=== PATIENT | female | born 1995 | race American Indian/Alaskan Native ===

== ENCOUNTER 2016-07-13 10:10 | Emergency (ER) | payer SELFPAY ==
--- NOTE | 2016-07-13 12:49 | Emergency Department Report ---
ED General Adult HPI - General Chief complaint: Pain General Stated complaint: LUPUS Time Seen by Provider: 07/13/16 11:19 Source: patient Mode of arrival: Ambulatory Limitations: No Limitations - History of Present Illness Initial comments: Patient here reports that she believes that she is having a lupus flare up. Patient is complaining of body pain all over with increased pain in her back of her neck. She stated that she has nausea but denies any vomiting. Denies any fever or chills. She has not vomited today but she says she vomited last night. Blood pressure is 157/117 and she is on labetalol 3 times a day. She says she did not take the dose today because she wasn't feeling well. Describes the pain as achy and 9 out of 10. Patient is also on CellCept and prednisone daily. Denies any abdominal pain. MD Complaint: Lupus flareup Onset/Timin -: days(s) Location: neck (generalized body pain), back, upper extremity, lower extremity Radiation: non-radiation Severity scale (0 -10): 9 Quality: aching Consistency: constant Improves with: rest Worsens with: movement Associated Symptoms: denies: confusion, chest pain, cough, diaphoresis, fever/ chills, headaches, loss of appetite, malaise, nausea/vomiting, rash, seizure, shortness of breath, syncope, weakness Treatments Prior to Arrival: none - Related Data Home Medications Medication Instructions Recorded Confirmed Last Taken Prednisone [predniSONE] 10 mg PO DAILY 11/18/13 10/07/15 10/07/15 1 Vit-Fe Fumar-FA [ 1 tab PO QDAY 09/02/15 10/07/15 09/01/15 09: 00 Vitamin] Previous Rx's Medication Instructions Recorded Last Taken Type Labetalol [Normodyne TAB] 400 mg PO TID #120 tablet 10/09/15 Unknown Rx Ferrous Sulfate [Feosol 325 MG tab] 325 mg PO BID #60 tablet 10/12/15 Unknown Rx HYDROcodone/APAP 5-325 [[place] 1 each PO Q6HR PRN #30 tablet 10/12/15 Unknown Rx 5/325] Ibuprofen [Motrin] 800 mg PO Q8HR PRN #30 tablet 10/12/15 Unknown Rx Vit W-Ca,Fe,FA(<1 mg) 1 each PO DAILY #30 tablet 10/12/15 Unknown Rx [ Vitamins] predniSONE [Deltasone] 60 mg PO QDAY #120 tab 10/15/15 Unknown Rx Sulfamethoxazole/Trimethoprim 1 each PO BID #6 tablet 07/13/16 Unknown Rx [Bactrim DS TAB] Allergies Allergy/AdvReac Type Severity Reaction Status Date / Time No Known Allergies Allergy Verified 06/20/15 18:08 ED Review of Systems ROS: Stated complaint: LUPUS Other details as noted in HPI Comment: All other systems reviewed and negative Constitutional: denies: chills, fever ENT: denies: ear pain, throat pain, congestion Respiratory: no symptoms reported Cardiovascular: denies: chest pain, palpitations, edema, syncope Gastrointestinal: denies: abdominal pain, nausea, vomiting, diarrhea, constipation Genitourinary: denies: urgency, dysuria, frequency, hematuria, discharge Musculoskeletal: back pain, arthralgia, myalgia Skin: denies: rash Neurological: weakness. denies: headache, numbness, paresthesias, confusion, abnormal gait, vertigo ED Past Medical Hx - Past Medical History Previous Medical History?: Yes Hx Hypertension: Yes Hx Congestive Heart Failure: No Hx Diabetes: No Hx Deep Vein Thrombosis: No Hx Renal Disease: (Lupus Nephritis) Hx Sickle Cell Disease: No (has sickle cell trait) Hx Seizures: Yes (February 2014) Hx Asthma: No Hx COPD: No Hx HIV: No Additional medical history: Heart murmur ,lupus - Surgical History Past Surgical History?: No - Family History Family history: hypertension - Social History Smoking Status: Never Smoker Substance Use Type: None - Medications Home Medications: Home Medications Medication Instructions Recorded Confirmed Last Taken Type Prednisone [predniSONE] 10 mg PO DAILY 11/18/13 10/07/15 10/07/15 History 1 Vit-Fe Fumar-FA [ 1 tab PO QDAY 09/02/15 10/07/15 09/01/15 09: 00 History Vitamin] Labetalol [Normodyne TAB] 400 mg PO TID #120 tablet 10/09/15 Unknown Rx Ferrous Sulfate [Feosol 325 MG tab] 325 mg PO BID #60 tablet 10/12/15 Unknown Rx HYDROcodone/APAP 5-325 [[place] 1 each PO Q6HR PRN #30 tablet 10/12/15 Unknown Rx 5/325] Ibuprofen [Motrin] 800 mg PO Q8HR PRN #30 tablet 10/12/15 Unknown Rx Vit W-Ca,Fe,FA(<1 mg) 1 each PO DAILY #30 tablet 10/12/15 Unknown Rx [ Vitamins] predniSONE [Deltasone] 60 mg PO QDAY #120 tab 10/15/15 Unknown Rx Sulfamethoxazole/Trimethoprim 1 each PO BID #6 tablet 07/13/16 Unknown Rx [Bactrim DS TAB] ED Physical Exam - General Limitations: No Limitations General appearance: alert, in no apparent distress - Head Head exam: Present: atraumatic, normocephalic, normal inspection - Eye Eye exam: Present: normal appearance, PERRL, EOMI. Absent: periorbital swelling , periorbital tenderness Pupils: Present: normal accommodation - ENT ENT exam: Present: normal exam, normal orophraynx, mucous membranes moist, TM's normal bilaterally, normal external ear exam - Neck Neck exam: Present: normal inspection, full ROM. Absent: tenderness, meningismus, lymphadenopathy - Expanded Neck Exam Expanded Neck exam: Absent: tenderness, midline deformity, anterior neck swelling, tracheal deviation - Respiratory Respiratory exam: Present: normal lung sounds bilaterally. Absent: respiratory distress, chest wall tenderness - Cardiovascular Cardiovascular Exam: Present: regular rate, normal rhythm, normal heart sounds - GI/Abdominal GI/Abdominal exam: Present: soft, normal bowel sounds. Absent: distended, tenderness, rigid - Extremities Exam Extremities exam: Present: normal inspection, full ROM, normal capillary refill. Absent: tenderness, pedal edema, joint swelling, calf tenderness - Back Exam Back exam: Present: normal inspection, full ROM. Absent: tenderness, CVA tenderness (R), CVA tenderness (L), muscle spasm, paraspinal tenderness, vertebral tenderness, rash noted - Expanded Back Exam Expanded Back exam: Absent: saddle anesthesia Back exam: Negative Straight Leg Raising: Left, Right - Neurological Exam Neurological exam: Present: alert, oriented X3, normal gait, reflexes normal. Absent: motor sensory deficit - Expanded Neurological Exam Expanded Neurological exam: Absent: innattentive, memory loss-remote event, memory loss- recent event, ataxia, receptive aphasia, expressive aphasia, total aphasia, tremor, protecting the airway Patient oriented to: Present: person, place Speech: Present: fluid speech Cranial nerves: EOM's Intact: Normal, Gag Reflex: Normal, Facial Sensation: Normal Cerebellar function: Romberg: Normal Upper motor neuron: Pronator Drift: Normal, Sensory Extinction: Normal Sensory exam: Upper Extremity Light Touch: Normal, Upper Extremity Temperature: Normal, UE 2 Point Discrimination: Normal, Lower Extremity Light Touch: Normal, Lower Extremity Temperature: Normal, LE 2 Point Discrimination: Normal Motor strength exam: RUE: 5, LUE: 5, RLE: 5, LLE: 5 DTR: bicep (R): 2+, bicep (L): 2+, tricep (R): 2+, tricep (L): 2+, knee (R): 2+ , knee (L): 2+, ankle (R): 2+, ankle (L): 2+ Best Eye Response ([place]): (4) open spontaneously Best Motor Response ([place]): (6) obeys commands Best Verbal Response ([place]): (5) oriented [place] Total: 15 - Psychiatric Psychiatric exam: Present: normal affect, normal mood - Skin Skin exam: Present: warm, dry, intact, normal color. Absent: rash ED Course Vital Signs 07/13/16 07/13/16 07/13/16 10:28 13:53 14:50 Temperature 98.3 F Pulse Rate 87 Respiratory 18 20 18 Rate Blood Pressure 157/117 O2 Sat by Pulse 100 99 Oximetry Vital Signs 07/13/16 07/13/16 07/13/16 10:28 13:53 14:50 Temperature 98.3 F Pulse Rate 87 Respiratory 18 20 18 Rate Blood Pressure 157/117 Blood Pressure [Right] O2 Sat by Pulse 100 99 Oximetry 07/13/16 16:50 Temperature Pulse Rate 82 Respiratory 16 Rate Blood Pressure Blood Pressure 142/96 [Right] O2 Sat by Pulse 98 Oximetry - Reevaluation(s) Reevaluation #1: 07/13/16 16:32 Patient stable she received 1 L of IV fluid normal saline, Solu-Medrol 125 mg IV , morphine 4 mg IV and Zofran 4 mg IV in emergency room. She stated that she is feeling better and her pain is down to 2 out of 10. 07/13/16 16:33 ED Medical Decision Making - Lab Data Result diagrams: 07/13/16 13:05 07/13/16 13:05 Lab Results 07/13/16 07/13/1617 Range/Units 13:05 13:05 13:18 WBC 5.8 (4.5-11.0) K/mm3 RBC 4.01 (3.65-5.03) M/mm3 Hgb 10.5 (10.1-14.3) gm/dl Hct 31.1 (30.3-42.9) % MCV 77 L (79-97) fl MCH 26 L (28-32) pg MCHC 34 (30-34) % RDW 13.6 (13.2-15.2) % Plt Count 227 (140-440) K/mm3 Lymph % (Auto) 18.9 (13.4-35.0) % [place] % (Auto) 8.9 H (0.0-7.3) % Eos % (Auto) 0.3 (0.0-4.3) % Baso % (Auto) 0.9 (0.0-1.8) % Lymph # 1.1 L (1.2-5.4) K/mm3 [place] # 0.5 (0.0-0.8) K/mm3 Eos # 0.0 (0.0-0.4) K/mm3 Baso # 0.1 (0.0-0.1) K/mm3 Seg Neutrophils % 71.0 H (40.0-70.0) % Seg Neutrophils # 4.1 (1.8-7.7) K/mm3 Sodium 143 (137-145) mmol/L Potassium 4.2 (3.6-5.0) mmol/L Chloride 110.9 H (98-107) mmol/L Carbon Dioxide 23 (22-30) mmol/L Anion Gap 13 mmol/L BUN 19 H (7-17) mg/dL Creatinine 1.6 H (0.7-1.2) mg/dL Estimated GFR 49 ml/min BUN/Creatinine Ratio 11.87 % Glucose 86 (65-100) mg/dL Calcium 7.2 L (8.4-10.2) mg/dL Total Bilirubin 0.2 (0.1-1.2) mg/dL Direct Bilirubin < 0.2 (0-0.2) mg/dL AST 15 (5-40) units/L ALT 7 (7-56) units/L Alkaline Phosphatase 64 (35-129) units/L Total Protein 4.3 L (6.3-8.2) g/dL Albumin 1.4 L (3.9-5) g/dL Albumin/Globulin Ratio 0.5 % Urine Color Yellow (Yellow) Urine Turbidity Slightly-cloudy (Clear) Urine pH 6.0 (5.0-7.0) Ur Specific [facility] 1.019 (1.003-1.030) Urine Protein >500 (Negative) mg/dL Urine Glucose (UA) Neg (Negative) mg/dL Urine Ketones Neg (Negative) mg/dL Urine Blood Mod (Negative) Urine Nitrite Neg (Negative) Urine Bilirubin Neg (Negative) Urine Urobilinogen < 2.0 (<2.0) mg/dL Ur Leukocyte Esterase Tr (Negative) Urine WBC (Auto) 20.0 H (0.0-6.0) /HPF Urine RBC (Auto) 15.0 (0.0-6.0) /HPF U Epithel Cells (Auto) 5.0 (0-13.0) /HPF Urine Bacteria (Auto) 1+ (Negative) /HPF Urine Mucus Few /HPF Urine HCG, Qual Negative (Negative) Urine culture pending - Medical Decision Making ED course: She is here reports lupus flareup. Lab work was found to be normal except she had mild increase in BUN and creatinine patient has been disabled since 2013. Her labwork history. She sees a farm crops teacher and she has passed nephritis. She also has moderate amount of blood in her urine, trace leuk trace and 1+ bacteria. Culture sent off and will treat for UTI. I went over lab work and urinalysis are patient. She says she felt better after hydration and Zofran, steroids iv. she was also given morphine 4 mg IV. Patient able to tolerate oral liquids prior to discharge. Patient discharged home to follow up with her primary care farm crops teacher and 3 days. Patient discharged home with prescription for Bactrim DS. Critical care attestation.: If time is entered above; I have spent that time in minutes in the direct care of this critically ill patient, excluding procedure time. ED Disposition Clinical Impression: Acute cystitis with hematuria, Proteinuria, Musculoskeletal pain, Renal insufficiency Disposition: DISCHARGED TO HOME OR SELFCARE Is pt being admited?: No Does the pt Need Aspirin: No Condition: Stable Instructions: Musculoskeletal Pain (ED), Impaired Kidney Function (ED), Urinary Tract Infection in Women (ED) Additional Instructions: Follow-up with primary care physician and your farm crops teacher on Saturday. Take antibiotic as prescribed. Monitor blood pressure and keep a log and take to her farm crops teacher visit with you. Prescriptions: Sulfamethoxazole/Trimethoprim [Bactrim DS TAB] 1 each PO BID #6 tablet Referrals: PRIMARY CARE, [Primary Care Provider] - 07/16/16 Your, Commercial Credit Specialist [Other] - 07/16/16 Forms: Accompanied Note, Work/School Release Form(ED)
[2016-07-13] MEDS ORDERED: NACL 0.9% 1000 ML 1,000 ML IV ONE (12:50)
[2016-07-13] MEDS ORDERED: ZOFRAN IV ONE (12:50)
[2016-07-13] MEDS ORDERED: MORPHINE IV ONE (12:50)
[2016-07-13 13:22] LABS: Basophils % (Auto) 0.9 % (0.0-1.8); Eosinophils % (Auto) 0.3 % (0.0-4.3); Hematocrit 31.1 % (30.3-42.9); Hemoglobin 10.5 gm/dl (10.1-14.3); Mean Corpuscular HGB Conc 34 % (30-34); Mean Corpuscular Hemoglobin 26 pg (28-32); Mean Corpuscular Volume 77 fl (79-97); Platelet Count 227 K/mm3 (140-440); Red Blood Count 4.01 M/mm3 (3.65-5.03); Red Cell Distribution Width 13.6 % (13.2-15.2); White Blood Count 5.8 K/mm3 (4.5-11.0)
[2016-07-13 13:38] LABS: Alanine Aminotransferase 7 units/L (7-56); Albumin 1.4 g/dL (3.9-5); Albumin/Globulin Ratio 0.5 %; Alkaline Phosphatase 64 units/L (35-129); Anion Gap 13 mmol/L; BUN/Creatinine Ratio 11.87; Bilirubin,Total 0.2 mg/dL (0.1-1.2); Blood Urea Nitrogen 19 mg/dL (7-17); Calcium 7.2 mg/dL (8.4-10.2); Carbon Dioxide 23 mmol/L (22-30); Chloride 110.9 mmol/L (98-107); Glucose 86 mg/dL (65-100); Potassium 4.2 mmol/L (3.6-5.0); Sodium 143 mmol/L (137-145); Total Protein 4.3 g/dL (6.3-8.2)
[2016-07-13 13:40] LABS: Bilirubin,Direct < 0.2 mg/dL (0-0.2)
[2016-07-13 13:44] LABS: Bacteria,Urine 1+ /HPF (Negative); Bilirubin,Urine NEG (Negative); Blood,Urine MOD (Negative); Ketones,Urine NEG (Negative); Leukocyte Esterase,Urine TR (Negative); Mucus,Urine FEW /HPF; Nitrite,Urine NEG (Negative); Urobilinogen,Urine < 2.0 mg/dL (<2.0)
[2016-07-13 13:46] LABS: Protein,Urine >500 mg/dL (Negative)
[2016-07-13 16:51] VITALS: BP 142/96
== END 2016-07-13 17:10 | disposition home or self-care (01) ==
LOC: ED 10:10
DX: N30.01 Acute cystitis with hematuria (principal); M79.1 Myalgia; N28.9 Disorder of kidney and ureter, unspecified; I10 Essential (primary) hypertension
CPT/HCPCS: 36415; 80048; 80074; 81001; 81025; 85025; 87086; 96361; 96374; 96375; 99283; J2270; J2405; J2930; J7030

== ENCOUNTER 2016-07-17 20:48 | Emergency (ER) | payer MEDICAID ==
[2016-07-17 22:11] LABS: Hematocrit 32.3 % (30.3-42.9); Hemoglobin 10.8 gm/dl (10.1-14.3); Mean Corpuscular HGB Conc 34 % (30-34); Mean Corpuscular Volume 76 fl (79-97); Platelet Count 245 K/mm3 (140-440); Red Blood Count 4.23 M/mm3 (3.65-5.03); Red Cell Distribution Width 13.9 % (13.2-15.2); White Blood Count 9.4 K/mm3 (4.5-11.0)
[2016-07-17 22:17] LABS: Mean Corpuscular Hemoglobin 26 pg (28-32)
[2016-07-17 22:21] LABS: INR 0.94 (0.87-1.13)
[2016-07-17 22:22] LABS: Partial Thromboplastin Time 28.3 Sec. (24.2-36.6)
[2016-07-17 22:35] LABS: Alanine Aminotransferase 9 units/L (7-56); Albumin 1.8 g/dL (3.9-5); Albumin/Globulin Ratio 0.7 %; Alkaline Phosphatase 63 units/L (35-129); Anion Gap 13 mmol/L; Bilirubin,Total 0.2 mg/dL (0.1-1.2); Blood Urea Nitrogen 25 mg/dL (7-17); Calcium 7.4 mg/dL (8.4-10.2); Carbon Dioxide 22 mmol/L (22-30); Chloride 108.7 mmol/L (98-107); Glucose 106 mg/dL (65-100); Lipase 37 units/L (13-60); Potassium 4.8 mmol/L (3.6-5.0); Sodium 139 mmol/L (137-145); Total Protein 4.4 g/dL (6.3-8.2)
[2016-07-17 22:55] LABS: Basophils % (Manual) 0 % (0.0-1.8); Blastocytes % (Manual) 0 %; Eosinophils % (Manual) 0 % (0.0-4.3)
[2016-07-17 22:56] LABS: Anisocytosis 1+; Diff Status Complete; Hypochromasia 1+; Large Platelets 1+; Platelet Estimate Consistent w Auto; Poikilocytosis 1+
[2016-07-18 02:19] LABS: Bacteria,Urine 2+ /HPF (Negative); Bilirubin,Urine NEG (Negative); Blood,Urine MOD (Negative); Ketones,Urine NEG (Negative); Leukocyte Esterase,Urine TR (Negative); Mucus,Urine FEW /HPF; Nitrite,Urine NEG (Negative); Protein,Urine >500 mg/dL (Negative); Urobilinogen,Urine < 2.0 mg/dL (<2.0)
[2016-07-18] MEDS ORDERED: DILAUDID IV ONE (03:39)
[2016-07-18] MEDS ORDERED: ZOFRAN IV ONE (03:39)
[2016-07-18] MEDS ORDERED: NACL 0.9% 1000 ML 1,000 ML IV ONE (03:39)
[2016-07-18] MEDS ORDERED: DECADRON IV ONE (03:39)
--- NOTE | 2016-07-18 03:41 | Emergency Department Report ---
ED Chest Pain HPI - General Chief Complaint: Chest Pain Stated Complaint: LUPUS PAIN/CHEST PAIN Time Seen by Provider: 07/18/16 03:16 Source: patient Mode of arrival: Ambulatory Limitations: No Limitations - History of Present Illness Initial Comments: This is a 20-year-old female with known history of lupus disease. She states that she's been having flare for the last several days. She was seen actually 4 days ago in our emergency department was given IV fluids and steroids and pain medication. She reports subjectively that she felt improved after that. She states at home she felt well for another day and then started declining again. She states today she's had some increase discomforts including chest pains she's had headache as well. She denies dysuria. She has felt feverish as well. Patient denies cough states that she is modestly compliant with her prednisone taking it only every other day. She is on a dose of 20 mg prednisone chronically. She follows with Dr. Heredia with nephrology. In regards to head pain it is occipital in nature. She does not have photophobia. She denies chronic history of migraines or headaches in general. She reports this is not typical for her to have headache with her lupus flare. Severity scale (0 -10): 10 - Related Data Home Medications Medication Instructions Recorded Confirmed Last Taken Prednisone [predniSONE] 10 mg PO DAILY 11/18/13 10/07/15 10/07/15 1 Vit-Fe Fumar-FA [ 1 tab PO QDAY 09/02/15 10/07/15 09/01/15 09: 00 Vitamin] Previous Rx's Medication Instructions Recorded Last Taken Type Labetalol [Normodyne TAB] 400 mg PO TID #120 tablet 10/09/15 Unknown Rx Ferrous Sulfate [Feosol 325 MG tab] 325 mg PO BID #60 tablet 10/12/15 Unknown Rx HYDROcodone/APAP 5-325 [[place] 1 each PO Q6HR PRN #30 tablet 10/12/15 Unknown Rx 5/325] Ibuprofen [Motrin] 800 mg PO Q8HR PRN #30 tablet 10/12/15 Unknown Rx Vit W-Ca,Fe,FA(<1 mg) 1 each PO DAILY #30 tablet 10/12/15 Unknown Rx [ Vitamins] predniSONE [Deltasone] 60 mg PO QDAY #120 tab 07/02/16 Unknown Rx Sulfamethoxazole/Trimethoprim 1 each PO BID #6 tablet 07/13/16 Unknown Rx [Bactrim DS TAB] Amoxicillin 500 mg PO TID #21 capsule 07/18/16 Unknown Rx HYDROcodone/APAP 5-325 [[place] 1 each PO Q4HR PRN #30 tablet 07/18/16 Unknown Rx 5/325] Allergies Allergy/AdvReac Type Severity Reaction Status Date / Time No Known Allergies Allergy Verified 06/20/15 18:08 LOLA score - Lola Score Age > 65: (0) No Aspirin use within the Past 7 Days: (0) No 3 or more CAD Risk Factors: (0) No 2 or more Angina events in past 24 hrs: (0) No Known CAD with more than 50% Stenosis: (0) No Elevated Cardiac Markers: (0) No ST Deviation Greater than 0.5mm: (0) No LOLA Score: 0 ED Review of Systems ROS: Stated complaint: LUPUS PAIN/CHEST PAIN Other details as noted in HPI Comment: All other systems reviewed and negative Constitutional: chills, fever, weakness Eyes: denies: eye pain, eye discharge, vision change ENT: denies: ear pain, throat pain Respiratory: denies: cough, shortness of breath, wheezing Cardiovascular: chest pain. denies: palpitations Endocrine: no symptoms reported Gastrointestinal: denies: abdominal pain, nausea, diarrhea Genitourinary: denies: urgency, dysuria, discharge Musculoskeletal: denies: back pain, joint swelling, arthralgia Skin: denies: rash, lesions Neurological: headache. denies: weakness, paresthesias Psychiatric: denies: anxiety, depression Hematological/Lymphatic: denies: easy bleeding, easy bruising ED Past Medical Hx - Past Medical History Previous Medical History?: Yes Hx Hypertension: Yes Hx Congestive Heart Failure: No Hx Diabetes: No Hx Deep Vein Thrombosis: No Hx Renal Disease: (Lupus Nephritis) Hx Sickle Cell Disease: No (has sickle cell trait) Hx Seizures: Yes (February 2014) Hx Asthma: No Hx COPD: No Hx HIV: No Additional medical history: Heart murmur ,lupus - Surgical History Past Surgical History?: No - Social History Smoking Status: Never Smoker Substance Use Type: None - Medications Home Medications: Home Medications Medication Instructions Recorded Confirmed Last Taken Type Prednisone [predniSONE] 10 mg PO DAILY 11/18/13 10/07/15 10/07/15 History 1 Vit-Fe Fumar-FA [ 1 tab PO QDAY 09/02/15 10/07/15 09/01/15 09: 00 History Vitamin] Labetalol [Normodyne TAB] 400 mg PO TID #120 tablet 10/09/15 Unknown Rx Ferrous Sulfate [Feosol 325 MG tab] 325 mg PO BID #60 tablet 10/12/15 Unknown Rx HYDROcodone/APAP 5-325 [[place] 1 each PO Q6HR PRN #30 tablet 10/12/15 Unknown Rx 5/325] Ibuprofen [Motrin] 800 mg PO Q8HR PRN #30 tablet 10/12/15 Unknown Rx Vit W-Ca,Fe,FA(<1 mg) 1 each PO DAILY #30 tablet 10/12/15 Unknown Rx [ Vitamins] predniSONE [Deltasone] 60 mg PO QDAY #120 tab 10/15/15 Unknown Rx Sulfamethoxazole/Trimethoprim 1 each PO BID #6 tablet 07/13/16 Unknown Rx [Bactrim DS TAB] Amoxicillin 500 mg PO TID #21 capsule 07/18/16 Unknown Rx HYDROcodone/APAP 5-325 [[place] 1 each PO Q4HR PRN #30 tablet 07/18/16 Unknown Rx 5/325] ED Physical Exam - General Limitations: No Limitations General appearance: alert, in distress (due to LOPEZ and CP) - Head Head exam: Present: atraumatic, normocephalic - Eye Eye exam: Present: normal appearance, PERRL, EOMI. Absent: scleral icterus - ENT ENT exam: Present: normal exam, normal orophraynx, mucous membranes moist - Neck Neck exam: Present: normal inspection, full ROM. Absent: tenderness, meningismus, lymphadenopathy - Respiratory Respiratory exam: Present: normal lung sounds bilaterally. Absent: respiratory distress, wheezes, rales - Cardiovascular Cardiovascular Exam: Present: normal rhythm, tachycardia. Absent: systolic murmur, diastolic murmur, rubs, gallop - GI/Abdominal GI/Abdominal exam: Present: soft, normal bowel sounds. Absent: tenderness, guarding, rebound - Extremities Exam Extremities exam: Present: normal inspection. Absent: tenderness, pedal edema, calf tenderness - Back Exam Back exam: Present: normal inspection. Absent: tenderness, CVA tenderness (R), CVA tenderness (L) - Neurological Exam Neurological exam: Present: alert, oriented X3 - Psychiatric Psychiatric exam: Present: normal affect, normal mood - Skin Skin exam: Present: warm, dry, intact, normal color. Absent: rash ED Course Vital Signs 07/17/16 07/18/16 07/18/16 20:58 01:36 01:40 Temperature 100.5 F H Pulse Rate 119 H 90 Respiratory 20 21 Rate Blood Pressure 170/119 170/119 Blood Pressure 157/118 [Right] O2 Sat by Pulse 100 100 Oximetry 07/18/16 07/18/16 07/18/16 01:43 01:45 01:50 Temperature Pulse Rate 90 94 H Respiratory 18 21 16 Rate Blood Pressure 166/111 166/111 Blood Pressure [Right] O2 Sat by Pulse 100 99 99 Oximetry 07/18/16 07/18/16 07/18/16 01:56 02:00 02:06 Temperature Pulse Rate 84 90 92 H Respiratory 18 22 19 Rate Blood Pressure 166/111 168/113 168/113 Blood Pressure [Right] O2 Sat by Pulse 99 100 97 Oximetry 07/18/16 07/18/16 07/18/16 02:10 02:15 02:20 Temperature Pulse Rate 93 H 92 H 87 Respiratory 15 21 17 Rate Blood Pressure 168/113 150/101 150/101 Blood Pressure [Right] O2 Sat by Pulse 100 100 100 Oximetry 07/18/16 07/18/16 07/18/16 02:26 02:30 02:36 Temperature Pulse Rate 89 92 H 90 Respiratory 12 19 15 Rate Blood Pressure 170/119 152/101 152/101 Blood Pressure [Right] O2 Sat by Pulse 100 100 100 Oximetry 07/18/16 07/18/16 07/18/16 02:40 02:45 02:50 Temperature Pulse Rate 84 98 H 97 H Respiratory 16 17 20 Rate Blood Pressure 152/101 155/104 155/104 Blood Pressure [Right] O2 Sat by Pulse 100 100 100 Oximetry 07/18/16 07/18/16 07/18/16 02:56 03:00 03:07 Temperature Pulse Rate 114 H 93 H 63 Respiratory 23 20 Rate Blood Pressure 155/104 154/111 Blood Pressure [Right] O2 Sat by Pulse 99 97 Oximetry - Reevaluation(s) Reevaluation #1: 07/18/16 03:16 ECG at 2050 with sinus tachycardia at 115 bpm with normal MI and QRS. Normal axis is noted. Otherwise unremarkable ECG. Reevaluation #2: 07/18/16 04:21 Patient is uncomfortable appearing here. She does not appear toxic. I am suspicious of a multifactorial presentation. I don't doubt she has lupus flare. I suspect there is an infectious component as well. Etiology seems to be the urine. There is evidence of infection. There the urine was sent for culture. There is some question of my mind whether this could be due to her lupus as well given her known kidney involvement. I will air on the side of treating for now however. Patient given a dose of Rocephin here. I did give dose of steroids as well to additionally augmentation to her slowing down and improving this lupus flare. She is noted to have a bumped creatinine 2.1. This appears to be her galo from what I can see on our labs at this hospital. I hope that this is just related to her flare and will hold down. I have cautioned her that she will need close follow-up with her skin care instructor. She will likely need repeat lead test done in about 5-7 days. She is tolerating by mouth okay here. I did consider other etiologies for her headache including possibility of meningitis. I doubt this clinically. I did express concern of this possibility the patient fell. She does not present like the fluid do not suspect. Patient was given symptomatic treatment here with modest to good results. In regards to the chest pain, patient has a normal ECG before tachycardia. She has negative enzymes 2. From a cardiac standpoint have a low suspicion for a primary process. Continue consider pulmonary embolism as well. Lupus clearly has coagulation concern PE just seems like unlikely to me as the tachycardia is easily explained with the fever and the patient has 100% oxygenation. Chest pain does not seems pleuritic in nature. She has had similar complaints in the past with her lupus flares. I believe lupus flare is much more likely etiology. 07/18/16 04:34 ED Medical Decision Making - Lab Data Result diagrams: 07/17/16 21:40 07/17/16 21:40 Critical care attestation.: If time is entered above; I have spent that time in minutes in the direct care of this critically ill patient, excluding procedure time. ED Disposition Clinical Impression: Fever Qualifiers: Fever type: unspecified Qualified Code(s): R50.9 - Fever, unspecified Chest pain Qualifiers: Chest pain type: precordial chest pain Qualified Code(s): R07.2 - Precordial pain UTI (urinary tract infection) Qualifiers: Urinary tract infection type: acute cystitis Hematuria presence: with hematuria Qualified Code(s): N30.01 - Acute cystitis with hematuria Disposition: DISCHARGED TO HOME OR SELFCARE Is pt being admited?: No Does the pt Need Aspirin: No Condition: Stable Additional Instructions: Drink plenty of fluids. Follow-up with your skin care instructor for continued evaluation and care. Your creatinine today is 2.1. Prescriptions: Amoxicillin 500 mg PO TID #21 capsule HYDROcodone/APAP 5-325 [[place] 5/325] 1 each PO Q4HR PRN #30 tablet PRN Reason: Pain Referrals: PRICILLA BATISTA MD [Primary Care Provider] - 3-5 Days Time of Disposition: 04:33
[2016-07-18] MEDS ORDERED: TYLENOL PO ONE (03:42)
[2016-07-18] MEDS ORDERED: ROCEPHIN/NS 1 GM/50 ML 1 GM/50 ML BAG IV ONE (03:43)
[2016-07-18 04:59] VITALS: BP 138/90
== END 2016-07-18 05:04 | disposition home or self-care (01) ==
LOC: ED 20:48
DX: N30.01 Acute cystitis with hematuria (principal); R50.9 Fever, unspecified; R07.2 Precordial pain; I10 Essential (primary) hypertension; M32.14 Glomerular disease in systemic lupus erythematosus; D57.00 Hb-SS disease with crisis, unspecified
CPT/HCPCS: 36415; 80053; 81001; 83690; 84484; 84703; 85007; 85025; 85610; 85730; 87086; 93005; 93010; 96365; 96375; 99284; J0696; J1100; J1170; J2405; J7030

== ENCOUNTER 2016-08-20 09:25 | Outpatient (CLI) | payer MEDICAID ==
[2016-08-20 09:55] LABS: Hematocrit 23.5 % (30.3-42.9); Hemoglobin 8.1 gm/dl (10.1-14.3); Mean Corpuscular HGB Conc 34 % (30-34); Mean Corpuscular Hemoglobin 28 pg (28-32); Mean Corpuscular Volume 81 fl (79-97); Platelet Count 333 K/mm3 (140-440); Red Blood Count 2.92 M/mm3 (3.65-5.03); Red Cell Distribution Width 18.9 % (13.2-15.2); White Blood Count 5.7 K/mm3 (4.5-11.0)
[2016-08-20 10:10] LABS: BUN/Creatinine Ratio 11.03; Calcium 7.5 mg/dL (8.4-10.2); Phosphorous 4.9 mg/dL (2.5-4.5); Potassium 3.1 mmol/L (3.6-5.0)
== END 2016-08-20 09:26 | disposition home or self-care (01) ==
LOC: LAB 09:25
PROVIDERS: ATTEND Internal Medicine
DX: N17.9 Acute kidney failure, unspecified (principal); N18.5 Chronic kidney disease, stage 5; M32.14 Glomerular disease in systemic lupus erythematosus; M32.9 Systemic lupus erythematosus, unspecified; R60.1 Generalized edema; R31.9 Hematuria, unspecified
CPT/HCPCS: 36415; 80048; 82040; 84100; 85027

== ENCOUNTER 2016-08-27 11:21 | Outpatient (CLI) | payer MEDICAID ==
[2016-08-27 11:58] LABS: Bacteria,Urine 1+ /HPF (Negative); Bilirubin,Urine NEG (Negative); Blood,Urine SM (Negative); Ketones,Urine NEG (Negative); Leukocyte Esterase,Urine NEG (Negative); Mucus,Urine FEW /HPF; Nitrite,Urine NEG (Negative); Urobilinogen,Urine < 2.0 mg/dL (<2.0)
[2016-08-27 12:00] LABS: Protein,Urine >500 mg/dL (Negative)
[2016-08-27 12:13] LABS: Albumin 2.8 g/dL (3.9-5); BUN/Creatinine Ratio 13.6; Calcium 7.5 mg/dL (8.4-10.2); Chloride 98.9 mmol/L (98-107); Phosphorous 4.3 mg/dL (2.5-4.5); Potassium 3.4 mmol/L (3.6-5.0)
== END 2016-08-27 11:22 | disposition home or self-care (01) ==
LOC: LAB 11:21
PROVIDERS: ATTEND Internal Medicine Nephrology
DX: N18.5 Chronic kidney disease, stage 5 (principal); N17.9 Acute kidney failure, unspecified; M32.9 Systemic lupus erythematosus, unspecified; M32.14 Glomerular disease in systemic lupus erythematosus; R31.9 Hematuria, unspecified; R60.1 Generalized edema; R80.9 Proteinuria, unspecified
CPT/HCPCS: 36415; 80048; 81001; 82040; 82570; 84100; 84156

== ENCOUNTER 2016-10-01 13:24 | Outpatient (CLI) | payer MEDICAID ==
[2016-10-01 13:49] LABS: Hematocrit 32.6 % (30.3-42.9); Hemoglobin 10.9 gm/dl (10.1-14.3); Mean Corpuscular HGB Conc 33 % (30-34); Mean Corpuscular Hemoglobin 28 pg (28-32); Mean Corpuscular Volume 84 fl (79-97); Platelet Count 326 K/mm3 (140-440); Red Blood Count 3.88 M/mm3 (3.65-5.03); Red Cell Distribution Width 16.9 % (13.2-15.2); White Blood Count 10.9 K/mm3 (4.5-11.0)
[2016-10-01 14:00] LABS: Albumin 2.3 g/dL (3.9-5); BUN/Creatinine Ratio 18.75; Calcium 8.3 mg/dL (8.4-10.2); Chloride 102.3 mmol/L (98-107); Phosphorous 4.3 mg/dL (2.5-4.5); Potassium 3.9 mmol/L (3.6-5.0)
[2016-10-01 15:00] LABS: Anisocytosis 1+; Basophils % (Manual) 0 % (0.0-1.8); Blastocytes % (Manual) 0 %; Eosinophils % (Manual) 0 % (0.0-4.3); Tear Drop Cells Few
[2016-10-01 15:01] LABS: Diff Status Complete; Microcytosis Few; Ovalocytes Few
== END 2016-10-01 13:25 | disposition home or self-care (01) ==
LOC: LAB 13:24
PROVIDERS: ATTEND Internal Medicine Nephrology
DX: I10 Essential (primary) hypertension (principal); R94.4 Abnormal results of kidney function studies; R80.9 Proteinuria, unspecified; M32.9 Systemic lupus erythematosus, unspecified; R60.0 Localized edema
CPT/HCPCS: 36415; 80048; 82040; 82570; 84100; 84156; 85007; 85025

== ENCOUNTER 2016-10-30 11:15 | Outpatient (CLI) | payer MEDICAID ==
[2016-10-30 11:41] LABS: Hematocrit 36.8 % (30.3-42.9); Hemoglobin 12.1 gm/dl (10.1-14.3); Mean Corpuscular HGB Conc 33 % (30-34); Mean Corpuscular Hemoglobin 28 pg (28-32); Mean Corpuscular Volume 86 fl (79-97); Platelet Count 334 K/mm3 (140-440); Red Blood Count 4.29 M/mm3 (3.65-5.03); Red Cell Distribution Width 15.1 % (13.2-15.2); White Blood Count 13.7 K/mm3 (4.5-11.0)
[2016-10-30 11:59] LABS: Albumin 2.7 g/dL (3.9-5); BUN/Creatinine Ratio 16.11; Calcium 7.8 mg/dL (8.4-10.2); Chloride 98.5 mmol/L (98-107); Phosphorous 2.9 mg/dL (2.5-4.5); Potassium 3.3 mmol/L (3.6-5.0)
[2016-10-30 12:30] LABS: Basophils % (Manual) 0 % (0.0-1.8); Blastocytes % (Manual) 0 %; Eosinophils % (Manual) 0 % (0.0-4.3)
[2016-10-30 12:31] LABS: Anisocytosis 1+; Microcytosis Few; Ovalocytes Few; Schistocytes Few; Tear Drop Cells Few
[2016-10-30 12:32] LABS: Diff Status Complete; Platelet Clumps Few; Platelet Estimate Consistent w Auto; Stomatocytes Few
== END 2016-10-30 11:16 | disposition home or self-care (01) ==
LOC: LAB 11:15
PROVIDERS: ATTEND Internal Medicine Nephrology
DX: I10 Essential (primary) hypertension (principal); M32.9 Systemic lupus erythematosus, unspecified; R94.4 Abnormal results of kidney function studies; R60.0 Localized edema; R80.9 Proteinuria, unspecified; Z79.899 Other long term (current) drug therapy
CPT/HCPCS: 36415; 80048; 82040; 82570; 84100; 84156; 85007; 85025

== ENCOUNTER 2016-12-31 09:56 | Emergency (ER) | payer MEDICAID ==
--- NOTE | 2016-12-31 10:33 | Emergency Department Report ---
Chief Complaint: Urogenital-Female Stated Complaint: UTI/LUPUS PAIN Time Seen by Provider: 12/31/16 10:29 - HPI History of Present Illness: PT c/o vaginal irritation x 2 days. PT denies discharge, odor or itching - ROS Review of Systems: - fever + bony pain - Exam Vital Signs: Vital Signs 12/31/16 10:24 Temperature 98.6 F Pulse Rate 93 H Respiratory 18 Rate Blood Pressure 180/134 O2 Sat by Pulse 99 Oximetry Physical Exam: PT looks well, non toxic. gcs 15 gu exam not done in triage MSE screening note: Focused history and physical exam performed. Due to findings the following was ordered: labs, meds pt states she did not take her bp medication today ED Disposition for MSE Condition: Stable
[2016-12-31] MEDS ORDERED: NORMODYNE PO ONE (11:00)
[2016-12-31 11:43] LABS: Bacteria,Urine 1+ /HPF (Negative); Bilirubin,Urine NEG (Negative); Blood,Urine MOD (Negative); Ketones,Urine NEG (Negative); Leukocyte Esterase,Urine TR (Negative); Mucus,Urine FEW /HPF; Nitrite,Urine NEG (Negative); Urobilinogen,Urine < 2.0 mg/dL (<2.0)
[2016-12-31 11:49] LABS: Protein,Urine >500 mg/dL (Negative)
[2016-12-31] MEDS ORDERED: CATAPRES ONE (12:40)
[2016-12-31] MEDS ORDERED: NORMODYNE ONE (12:43)
[2016-12-31] MEDS ORDERED: TYLENOL PO ONE (12:53)
--- NOTE | 2016-12-31 12:59 | Emergency Department Report ---
ED Female HPI - General Chief complaint: Urogenital-Female Stated complaint: UTI/LUPUS PAIN Time Seen by Provider: 12/31/16 10:29 Source: patient Mode of arrival: Ambulatory Limitations: No Limitations - History of Present Illness Initial comments: This is a 21-year-old female with past medical history of hypertension and lupus nephritis nontoxic, well nourished in appearance, no acute signs of distress presents to the ED complaining of dysuria and vaginal discomfort/ irritation during wiping and sexual intercourse. Patient denies any vaginal discharge. Denies back pain. Patient denies any hematuria, chest pain, shortness of breath, numbness, tingling, fever, chills, and nausea vomiting, abdominal pain or pelvic pain. Patient think she is not concerned about significant other disease but still like to be tested. They stated she missed her dose of labetalol this morning. Denies headache, blurry vision, nausea vomiting. Patient states allergies to lisinopril. Patient also states she wants pain medication during her lupus flareup. Patient denies any lupus flare up today currently but stated she does develop lupus flareup and pain at times at night and in the mornings. MD Complaint: dysuria, other (vaginal discomfort/irritation) -: Gradual, days(s) (2) Radiation: non-radiating Severity: mild Severity scale (0 -10): 6 Quality: burning Consistency: constant Improves with: none Worsens with: urination, intercourse Are you Now?: No Associated Symptoms: denies other symptoms, dysuria. denies: vaginal discharge , vaginal bleeding, abdominal pain, nausea/vomiting, fever/chills, headaches, loss of appetite, hematuria, rash, seizure, shortness of breath, syncope, weakness - Related Data Home Medications Medication Instructions Recorded Confirmed Last Taken Prednisone [predniSONE] 10 mg PO DAILY 11/18/13 10/07/15 10/07/15 1 Vit-Fe Fumar-FA [ 1 tab PO QDAY 09/02/15 10/07/15 09/01/15 09: 00 Vitamin] Previous Rx's Medication Instructions Recorded Last Taken Type Labetalol [Normodyne TAB] 400 mg PO TID #120 tablet 10/09/15 Unknown Rx Ferrous Sulfate [Feosol 325 MG tab] 325 mg PO BID #60 tablet 10/12/15 Unknown Rx HYDROcodone/APAP 5-325 [[place] 1 each PO Q6HR PRN #30 tablet 10/12/15 Unknown Rx 5/325] Ibuprofen [Motrin] 800 mg PO Q8HR PRN #30 tablet 10/12/15 Unknown Rx Vit W-Ca,Fe,FA(<1 mg) 1 each PO DAILY #30 tablet 10/12/15 Unknown Rx [ Vitamins] predniSONE [Deltasone] 60 mg PO QDAY #120 tab 10/15/15 Unknown Rx Sulfamethoxazole/Trimethoprim 1 each PO BID #6 tablet 07/13/16 Unknown Rx [Bactrim DS TAB] Amoxicillin 500 mg PO TID #21 capsule 07/18/16 Unknown Rx HYDROcodone/APAP 5-325 [[place] 1 each PO Q4HR PRN #30 tablet 07/18/16 Unknown Rx 5/325] Sulfamethoxazole/Trimethoprim 1 each PO BID #14 tablet 12/31/16 Unknown Rx [Bactrim DS TAB] Allergies Allergy/AdvReac Type Severity Reaction Status Date / Time lisinopril AdvReac Anaphylaxis Verified 12/31/16 10:24 ED Review of Systems ROS: Stated complaint: UTI/LUPUS PAIN Other details as noted in HPI Constitutional: denies: chills, fever Eyes: denies: eye pain, eye discharge, vision change ENT: denies: ear pain, throat pain Respiratory: denies: cough, shortness of breath, wheezing Cardiovascular: denies: chest pain, palpitations Endocrine: no symptoms reported Gastrointestinal: denies: abdominal pain, nausea, diarrhea Genitourinary: dysuria, other (vaginal irritation/discomfort). denies: urgency , discharge Musculoskeletal: denies: back pain, joint swelling, arthralgia Skin: denies: rash, lesions Neurological: denies: headache, weakness, paresthesias Psychiatric: denies: anxiety, depression Hematological/Lymphatic: denies: easy bleeding, easy bruising ED Past Medical Hx - Past Medical History Hx Hypertension: Yes Hx Congestive Heart Failure: No Hx Diabetes: No Hx Deep Vein Thrombosis: No Hx Renal Disease: (Lupus Nephritis) Hx Sickle Cell Disease: No (has sickle cell trait) Hx Seizures: Yes (February 2014) Hx Asthma: No Hx COPD: No Hx HIV: No Additional medical history: Heart murmur ,lupus - Surgical History Past Surgical History?: No - Social History Smoking Status: Never Smoker Substance Use Type: None - Medications Home Medications: Home Medications Medication Instructions Recorded Confirmed Last Taken Type Prednisone [predniSONE] 10 mg PO DAILY 11/18/13 10/07/15 10/07/15 History 1 Vit-Fe Fumar-FA [ 1 tab PO QDAY 09/02/15 10/07/15 09/01/15 09: 00 History Vitamin] Labetalol [Normodyne TAB] 400 mg PO TID #120 tablet 10/09/15 Unknown Rx Ferrous Sulfate [Feosol 325 MG tab] 325 mg PO BID #60 tablet 10/12/15 Unknown Rx HYDROcodone/APAP 5-325 [[place] 1 each PO Q6HR PRN #30 tablet 10/12/15 Unknown Rx 5/325] Ibuprofen [Motrin] 800 mg PO Q8HR PRN #30 tablet 10/12/15 Unknown Rx Vit W-Ca,Fe,FA(<1 mg) 1 each PO DAILY #30 tablet 10/12/15 Unknown Rx [ Vitamins] predniSONE [Deltasone] 60 mg PO QDAY #120 tab 10/15/15 Unknown Rx Sulfamethoxazole/Trimethoprim 1 each PO BID #6 tablet 07/13/16 Unknown Rx [Bactrim DS TAB] Amoxicillin 500 mg PO TID #21 capsule 07/18/16 Unknown Rx HYDROcodone/APAP 5-325 [[place] 1 each PO Q4HR PRN #30 tablet 07/18/16 Unknown Rx 5/325] Sulfamethoxazole/Trimethoprim 1 each PO BID #14 tablet 12/31/16 Unknown Rx [Bactrim DS TAB] ED Physical Exam - General Limitations: No Limitations General appearance: alert, in no apparent distress - Head Head exam: Present: atraumatic, normocephalic, normal inspection - Eye Eye exam: Present: normal appearance, PERRL, EOMI. Absent: scleral icterus, conjunctival injection, nystagmus, periorbital swelling, periorbital tenderness Pupils: Present: normal accommodation - ENT ENT exam: Present: normal exam, normal orophraynx, mucous membranes moist, TM's normal bilaterally, normal external ear exam - Neck Neck exam: Present: normal inspection, full ROM. Absent: tenderness, meningismus, lymphadenopathy, thyromegaly - Respiratory Respiratory exam: Present: normal lung sounds bilaterally. Absent: respiratory distress, wheezes, rales, rhonchi, stridor, chest wall tenderness, accessory muscle use, decreased breath sounds, prolonged expiratory - Cardiovascular Cardiovascular Exam: Present: regular rate, normal rhythm, normal heart sounds. Absent: bradycardia, tachycardia, irregular rhythm, systolic murmur, diastolic murmur, rubs, gallop - GI/Abdominal GI/Abdominal exam: Present: soft, normal bowel sounds. Absent: distended, tenderness, guarding, rebound, rigid, diminished bowel sounds - Rectal Rectal exam: Present: deferred - External exam: Present: normal external exam, other (operators school manager Kole Astudillo RN present during exam). Absent: erythema, swelling, lesions, lacerations, ecchymosis, bleeding Speculum exam: Present: normal speculum exam, other (operators school manager Kole Astudillo RN present during exam). Absent: erythema, vaginal discharge, cervical discharge, vaginal bleeding, foreign body, tissue, laceration Bi-manual exam: Present: normal bi-manual exam, other (operators school manager Kole Astudillo RN present during exam). Absent: cervical motion tendernes, adnexal tenderness , adnexal mass, uterine enlargement, uterine tenderness - Extremities Exam Extremities exam: Present: normal inspection, full ROM, normal capillary refill. Absent: tenderness, pedal edema, joint swelling, calf tenderness - Back Exam Back exam: Present: normal inspection, full ROM. Absent: tenderness, CVA tenderness (R), CVA tenderness (L), muscle spasm, paraspinal tenderness, vertebral tenderness, rash noted - Neurological Exam Neurological exam: Present: alert, oriented X3, CN II-XII intact, normal gait, reflexes normal - Psychiatric Psychiatric exam: Present: normal affect, normal mood - Skin Skin exam: Present: warm, dry, intact, normal color. Absent: rash ED Course Vital Signs 12/31/16 12/31/16 12/31/16 10:24 10:28 12:35 Temperature 98.6 F 97.5 F L Pulse Rate 93 H 93 H 92 H Respiratory 18 18 20 Rate Blood Pressure 180/134 Blood Pressure 150/116 185/132 [Left] O2 Sat by Pulse 99 100 100 Oximetry 12/31/16 12:43 Temperature Pulse Rate 92 H Respiratory Rate Blood Pressure 185/132 Blood Pressure [Left] O2 Sat by Pulse Oximetry - Reevaluation(s) Reevaluation #1: 12/31/16 13:03 Patient is speaking in full sentences with no signs of distress noted. Reevaluation #2: 12/31/16 13:07 Patient received a dose of labetalol 40 mg by mouth in the ED. Well repeat blood pressure. ED Medical Decision Making - Medical Decision Making This is a 20-year-old female presents with UTI and yeast infection. Patient was examined by myself. Patient is stable. Wet prep has been obtained with rare yeast infection. Patient be treated with Diflucan 1 dose in the ED. Patient also be treated with Bactrim for 7 days for UTI. Patient notified of her high blood pressure and stated she missed a dose of her labetalol. Patient received 1 dose of labetalol 400 mg by mouth in the ED. Patient was instructed to follow-up with a primary care doctor in 24 hours for her elevated blood pressure and reassessment of medical treatment. Patient is also notified to keep a diary of blood pressure daily and presented to the primary care doctor. At time time of discharge, the patient does not seem toxic or ill in appearance. No acute signs of distress noted. Patient agrees to discharge treatment plan of care. No further questions noted by the patient. Critical care attestation.: If time is entered above; I have spent that time in minutes in the direct care of this critically ill patient, excluding procedure time. ED Disposition Clinical Impression: Vaginal candidiasis Hypertension Qualifiers: Hypertension type: unspecified Qualified Code(s): I10 - Essential (primary) hypertension UTI (urinary tract infection) Qualifiers: Urinary tract infection type: site unspecified Hematuria presence: without hematuria Qualified Code(s): N39.0 - Urinary tract infection, site not specified Disposition: TO HOME OR SELFCARE Is pt being admited?: No Does the pt Need Aspirin: No Condition: Stable Instructions: Hypertension (ED), Urinary Tract Infection in Women (ED), Vulvovaginal Candidiasis (ED), Sulfamethoxazole/Trimethoprim (By mouth), Low Sodium Diet (ED) Additional Instructions: Follow-up with your primary care doctor in 24 hours for reevaluation of your high blood pressure. If symptoms worsen and continue return to emergency room as was possible. Keep a diary daily with your blood pressure and presented to your primary care doctor. Prescriptions: Sulfamethoxazole/Trimethoprim [Bactrim DS TAB] 1 each PO BID #14 tablet Referrals: [facility] [Outside] - 3-5 Days [facility] [Outside] - 3-5 Days PRIMARY CAREMD [Primary Care Provider] - 24 Hours KIKE SOUSA MD [Staff Physician] - 24 Hours Forms: Work/School Release Form(ED)
[2016-12-31 15:23] VITALS: BP 154/89
[2016-12-31] MEDS ORDERED: DIFLUCAN PO ONE (15:30)
== END 2016-12-31 15:38 | disposition home or self-care (01) ==
LOC: ED 09:56
DX: B37.3 Candidiasis of vulva and vagina (principal); N39.0 Urinary tract infection, site not specified; I10 Essential (primary) hypertension; R56.9 Unspecified convulsions; Z88.8 Allergy status to other drugs, medicaments and biological substances
CPT/HCPCS: 81001; 81025; 87210; 87591; 99284

== ENCOUNTER 2017-03-04 07:49 | Outpatient (CLI) | payer MEDICAID ==
[2017-03-04 08:16] LABS: Hematocrit 40.1 % (30.3-42.9); Hemoglobin 13.3 gm/dl (10.1-14.3); Mean Corpuscular HGB Conc 33 % (30-34); Mean Corpuscular Hemoglobin 28 pg (28-32); Mean Corpuscular Volume 84 fl (79-97); Platelet Count 373 K/mm3 (140-440); Red Blood Count 4.77 M/mm3 (3.65-5.03); Red Cell Distribution Width 14.4 % (13.2-15.2); White Blood Count 8.8 K/mm3 (4.5-11.0)
[2017-03-04 08:36] LABS: Albumin 2.9 g/dL (3.9-5); Albumin/Globulin Ratio 0.9 %; Bilirubin,Total 0.2 mg/dL (0.1-1.2); Calcium 8.4 mg/dL (8.4-10.2); Total Protein 6.1 g/dL (6.3-8.2)
[2017-03-04 08:37] LABS: Chloride 102.8 mmol/L (98-107); Potassium 3.9 mmol/L (3.6-5.0)
== END 2017-03-04 07:50 | disposition home or self-care (01) ==
LOC: LAB 07:49
PROVIDERS: ATTEND Internal Medicine
DX: I10 Essential (primary) hypertension (principal); M32.9 Systemic lupus erythematosus, unspecified; R94.4 Abnormal results of kidney function studies; R80.9 Proteinuria, unspecified; R60.0 Localized edema
CPT/HCPCS: 36415; 80053; 82565; 82570; 82575; 84156; 85027